=== PATIENT | female | born 1955 | race Caucasian/White ===

== ENCOUNTER 2022-10-22 10:18 | Emergency (ER) | payer MEDICARE ==
[~2022-10-22] VITALS: Ht 162.6 cm; Wt 41.7 kg
--- NOTE | 2022-10-22 10:39 | NUR ---
DR BLAIR AT BEDSIDE FOR EVAL.
--- NOTE | 2022-10-22 10:43 | NUR ---
PT TO RADIOLOGY FOR HIP AND LUMBAR CT SCAN VIA [facility].
--- NOTE | 2022-10-22 13:57 | NUR ---
Patient discharged to home in stable condition. Written and verbal after care instructions given. Patient verbalizes understanding of instruction.
[2022-10-22 13:58] VITALS: BP 112/60
== END 2022-10-22 13:58 | disposition home or self-care (01) ==
LOC: ER 10:28
DX: M54.17 Radiculopathy, lumbosacral region (principal); M25.552 Pain in left hip
CPT/HCPCS: 72131-TC; 73502; 93971-TC